=== PATIENT | male | born 1985 | race Caucasian/White ===

== ENCOUNTER 2020-09-12 15:09 | Emergency (ER) | payer OTHER ==
[~2020-09-12 15:09] MED LIST: MOTRIN600 MG PO
[2020-09-12] MEDS ORDERED: NORCO 5-325 TA1 EACH PO (20:36)
[2020-09-12] MEDS ORDERED: DOXYCYCLINE HY100 MG PO (20:36)
== END 2020-09-12 20:00 | disposition home or self-care (01) ==
LOC: FER 15:09
DX: S92.421B Displaced fracture of distal phalanx of right great toe, initial encounter for open fracture (principal); F17.210 Nicotine dependence, cigarettes, uncomplicated; W20.8XXA Other cause of strike by thrown, projected or falling object, initial encounter; Y92.89 Other specified places as the place of occurrence of the external cause; Y99.0 Civilian activity done for income or pay
CPT/HCPCS: 73660